=== PATIENT | female | born 1970 | race Caucasian/White ===

== ENCOUNTER 2017-01-19 16:24 | Emergency (ER) | payer BC, OTHER ==
[~2017-01-19] VITALS: Ht 167.6 cm; Wt 85.5 kg
[~2017-01-19 16:24] MED LIST: AMOX600S PO; CLON1 PO; HYDR-3129 PO; ONDA1SOL2 PO; OXYC1CON3 PO; VENL37.5 PO
[2017-01-19 16:28] VITALS: BP 170/103; PULSE 82; RESP 16; TEMP 98.5; O2SAT 98
[2017-01-19] MEDS ORDERED: PROPARACAINE HCL 0.5% OPHT SOLN 15 ML BTL LEFT EYE ONE (16:30)
[2017-01-19] MEDS ORDERED: VENL25TA PO (16:40)
--- NOTE | 2017-01-19 16:40 | PD ---
HPI Chief Complaint: Foreign Body Time Seen by Provider: 16:39 Travel History International Travel<30 days: No Contact w/Intl Traveler<30days: No Traveled to known affect area: No History of Present Illness HPI 46-year-old female presents the emergency Department with a foreign body in the left eye while working at the local [employer] Patient states she was removing a client from the oven which was 1600 when a flake of metal popped off and injured her left eye and upper eyelid. Patient is concerned about possible foreign body. She complains of burning pain but vision seems to be normal. Pain is a 6 out of 10. She has no other injury. She is unsure of her last shot. She is allergic to antihistamines, latex, and tramadol. PFSH Past Medical History Hx Anticoagulant Therapy: No Depression: Yes Cancer: Yes (THYROID) Chemotherapy: Yes (2011) Diabetes: No Diminished Hearing: No Immunizations Current: Yes Radiation Therapy: Yes (FOR THYROID CA) Thyroid Disease: Yes (THYROID CANCER) ?: Not : 4 Para: 4 Miscarriage: 0 : 0 Past Surgical History Appendectomy: Yes Endocrine Surgery: Yes (1/2 THYROID REMOVED DUE TO CA) Other Surgery: Yes (R LEG FX W PINS/SCREWS) Social History Alcohol Use: No Tobacco Use: No Substance Use: No Allergies-Medications (Allergen,Severity, Reaction): Coded Allergies: Tramadol (Verified Allergy, Severe, Nausea/Vomiting, 01/19/17) Latex (Verified Allergy, Intermediate, RASH, 01/19/17) Uncoded Allergies: ANTIHISTAMINE'S (Adverse Reaction, Severe, CONFUSION, 12/19/12) Reported Meds & Prescriptions Reported Meds & Active Scripts Active Reported Effexor (Venlafaxine HCl) 25 Mg Tab Unknown Dose PO Q12H Review of Systems Except as stated in HPI: all other systems reviewed are Neg General / Constitutional: No: Fever Eyes: No: Visual changes HENT: No: Headaches Cardiovascular: No: Chest Pain or Discomfort Respiratory: No: Shortness of Breath Gastrointestinal: No: Abdominal Pain Genitourinary: No: Dysuria Musculoskeletal: No: Pain Skin: No Rash Neurologic: No: Weakness Psychiatric: No: Depression Endocrine: No: Polydipsia Hematologic/Lymphatic: No: Easy Bruising Physical Exam Narrative GENERAL: She appears in mild to moderate distress. SKIN: Warm and dry. Normal color. Normal turgor. Patient has a small 3 mm round superficial first-degree burn to the central left upper eyelid HEAD: Atraumatic. Normocephalic. EYES: Pupils equal and round. No scleral icterus. No injection or drainage. No injection is noted. Left eye is examined with Wood's lamp and fluorescein after anesthesia with proparacaine drops. Patient has 2 small corneal abrasions noted one at the 11 o'clock position and one at the 5:30 position in the left eye. There is no foreign body appreciated. ENT: No nasal bleeding or discharge. Mucous membranes pink and moist. Pharynx is normal, airway is patent. NECK: Trachea midline. Supple and nontender. CARDIOVASCULAR: Regular rate and rhythm. RESPIRATORY: No accessory muscle use. MUSCULOSKELETAL: Extremities without clubbing, cyanosis, or edema. No obvious deformities. NEUROLOGICAL: Awake and alert. No obvious cranial nerve deficits. Motor grossly within normal limits. Five out of 5 muscle strength in the arms and legs. Normal speech. PSYCHIATRIC: Appropriate mood and affect; insight and judgment normal. Data Data Last Documented VS Vital Signs Date Time Temp Pulse Resp B/P Pulse Ox O2 Delivery O2 Flow Rate FiO2 01/19/17 16:28 98.5 82 16 170/103 98 Orders Proparacaine 0.5% Opth Soln (Alcaine 0.5 (01/19/17 16:30) MDM Medical Decision Making Medical Screen Exam Complete: Yes Emergency Medical Condition: Yes Differential Diagnosis Corneal burn. Cranial abrasion. Foreign body. Workplace injury. Narrative Course Patient's medically stable at time of exam. Left eye is examined with fluorescein dye and was lamp as stated in exam. No foreign body is identified. Patient was treated with erythromycin ophthalmic ointment and ibuprofen 800 mg 3 times daily with food #30. Patient is to use the ointment every 4 hours while awake for the next 5 days. Patient is to follow-up with her Worker's [employer]. provider in 5 days to ensure resolution. Worker's Comp. paperwork is completed. Patient can follow-up sooner if worsening symptoms develop as needed. Diagnosis Primary Impression: Corneal abrasion, left Qualified Code: S05.02XA - Corneal abrasion, left, initial encounter Patient Instructions: Corneal Abrasion (ED), General Instructions Additional Instructions: Left eye is examined with fluorescein dye and was lamp as stated in exam. No foreign body is identified. Patient was treated with erythromycin ophthalmic ointment and ibuprofen 800 mg 3 times daily with food #30. Patient is to use the ointment every 4 hours while awake for the next 5 days. Patient is to follow-up with her Worker's [employer] provider in 5 days to ensure resolution. Worker's Comp[employer] paperwork is completed. Patient can follow-up sooner if worsening symptoms develop as needed. Med/Other Pt SpecificInfo: Prescription(s) given Disposition: 01 DISCHARGE HOME Condition: Stable Bud Peña Jan 19, 2017 16:39
[2017-01-19] MEDS ORDERED: IBUP800T23 PO (16:59)
[2017-01-19] MEDS ORDERED: ERYTOIN10 LEFT EYE (16:59)
== END 2017-01-19 17:16 | disposition home or self-care (01) ==
LOC: PHEFT 16:24
DX: S05.02XA Injury of conjunctiva and corneal abrasion without foreign body, left eye, initial encounter (principal); X58.XXXA Exposure to other specified factors, initial encounter; Y93.89 Activity, other specified; Y92.89 Other specified places as the place of occurrence of the external cause; Y99.0 Civilian activity done for income or pay
CPT/HCPCS: 99283